=== PATIENT | female | born 1965 | race Native Hawaiian/Other Pacific Islander ===

== ENCOUNTER → 2020-09-01 | Outpatient (CLI) | payer OTHER | LOC: INF 15:27 | PROVIDERS: ATTEND Internal Medicine | DX: Z23 Encounter for immunization (principal) | CPT/HCPCS: 96372 ==

== ENCOUNTER 2020-09-30 09:58 | Outpatient (CLI) | payer OTHER | END 2020-09-30 19:11 | disposition home or self-care (01) | LOC: INF 09:58 | PROVIDERS: ATTEND Internal Medicine | DX: Z23 Encounter for immunization (principal) | CPT/HCPCS: 96372 ==